=== PATIENT | female | born 1930 | race African-American/Black ===

== ENCOUNTER → 2016-11-17 | Outpatient (CLI) | payer MEDICARE ==
[~2016-11-17] MED LIST: ACET-3161; AMLO5TAB4; DIAZ-56; GUAN1TAB; RANI150C12; SERT-112; SIMV20TA2
== END | disposition home or self-care (01) ==
LOC: MAMMO 10:10
PROVIDERS: ATTEND Internal Medicine
DX: Z12.31 Encounter for screening mammogram for malignant neoplasm of breast (principal)
CPT/HCPCS: G0202

== ENCOUNTER → 2016-12-06 | Outpatient (CLI) | payer MEDICARE ==
[~2016-12-06] MED LIST changes: +BARIUM SULFATE 450ML ORAL SUSP ONE; +IOHEXOL-300 100 ML BOTTLE ONE; +SODIUM CHLORIDE 0.9% 10ML VIAL ONE
== END | disposition home or self-care (01) ==
LOC: CT 10:04
PROVIDERS: ATTEND Internal Medicine Gastroenterology
DX: K57.32 Diverticulitis of large intestine without perforation or abscess without bleeding (principal); K80.80 Other cholelithiasis without obstruction; N28.1 Cyst of kidney, acquired
CPT/HCPCS: 74177; A4216; C1893; Q9967

== ENCOUNTER → 2018-03-12 | Emergency (ER) | payer MEDICARE ==
[~2018-03-12] VITALS: Ht 162.6 cm; Wt 70.0 kg
[~2018-03-12] MED LIST changes: -ACET-3161; +ACETAMINOPHEN 325MG TABLET PO ONE; -AMLO5TAB4; -BARIUM SULFATE 450ML ORAL SUSP ONE; -DIAZ-56; -GUAN1TAB; +HYDROCODONE/ACETAMINOPHEN 10/325MG TABLET PO ONE; -IOHEXOL-300 100 ML BOTTLE ONE; +LEVOFLOXACIN 250MG TABLET PO ONE; +METRONIDAZOLE 500MG TABLET PO ONE; +MORPHINE SULFATE 10 MG/ML CPJ IM ONE; -RANI150C12; -SERT-112; -SIMV20TA2; -SODIUM CHLORIDE 0.9% 10ML VIAL ONE
[2018-03-12 22:31] VITALS: BP 179/70
== END | disposition home or self-care (01) ==
LOC: ER 19:58
DX: M54.32 Sciatica, left side (principal); M25.552 Pain in left hip; K57.92 Diverticulitis of intestine, part unspecified, without perforation or abscess without bleeding; I10 Essential (primary) hypertension; K64.9 Unspecified hemorrhoids; Z88.1 Allergy status to other antibiotic agents; Z88.2 Allergy status to sulfonamides; Z88.6 Allergy status to analgesic agent; Z90.710 Acquired absence of both cervix and uterus
CPT/HCPCS: 72192; 96372; 99284; J2270

== ENCOUNTER 2019-08-28 06:07 | Day surgery (SDC) | payer MEDICARE ==
[~2019-08-28] VITALS: Ht 162.6 cm; Wt 68.9 kg
[2019-08-28] MEDS ORDERED: TROPICAMIDE 1% OPHTH DROPS 15ML LEFTEYE ONE (06:50)
[2019-08-28] MEDS ORDERED: PHENYLEPHRINE HCL 10% OPHTH DROPS 5ML LEFTEYE ONE (06:50)
[2019-08-28] MEDS ORDERED: CYCLOPENTOLATE HCL 1% OPHTH DROPS 2ML LEFTEYE ONE (06:50)
[2019-08-28] MEDS ORDERED: LACTATED RINGERS 1,000 ML IV SCH (07:15)
[2019-08-28] MEDS ORDERED: LACTATED RINGERS 500 ML IV SCH (07:15)
[2019-08-28] MEDS ORDERED: DIAZ5TAB PO (07:41)
[2019-08-28] MEDS ORDERED: VERA240C3 PO (07:41)
[2019-08-28] MEDS ORDERED: SERT-112 PO (07:41)
[2019-08-28] MEDS ORDERED: CALC-25 PO (07:41)
[2019-08-28] MEDS ORDERED: SIMV20TA6 PO (07:41)
[2019-08-28] MEDS ORDERED: HYALURONATE SODIUM 14 MG/ML 0.85ML SYRINGE IO ONE (07:53)
[2019-08-28] MEDS ORDERED: ERYTHROMYCIN BASE 0.5% OPHTH OINT UD ONE (07:54)
[2019-08-28] MEDS ORDERED: BALANCED SALT IRRIG SOLN COMB1 500ML OP SCH (08:30)
[2019-08-28] MEDS ORDERED: MIDAZOLAM HCL 2 MG/2 ML VIAL ONE (08:45)
[2019-08-28] MEDS ORDERED: FENTANYL CITRATE/PF 50MCG/ML 2ML VIAL ONE (08:45)
[2019-08-28] MEDS ORDERED: ACETAMINOPHEN 325MG TABLET PO NR (11:01)
== END 2019-08-28 11:25 | disposition home or self-care (01) ==
LOC: OR 06:07
PROVIDERS: ATTEND Ophthalmology
DX: H25.89 Other age-related cataract (principal); I10 Essential (primary) hypertension; M19.90 Unspecified osteoarthritis, unspecified site; G62.9 Polyneuropathy, unspecified; E78.00 Pure hypercholesterolemia, unspecified; F41.9 Anxiety disorder, unspecified; Z79.899 Other long term (current) drug therapy; Z88.2 Allergy status to sulfonamides; Z88.8 Allergy status to other drugs, medicaments and biological substances; Z98.890 Other specified postprocedural states
CPT/HCPCS: 66984; J2250; J3010; J3490; V2632

== ENCOUNTER → 2020-05-16 | Outpatient (CLI) | payer MEDICARE ==
[~2020-05-16] MED LIST changes: -ACETAMINOPHEN 325MG TABLET PO ONE; +CALC-25 PO; +DIAZ5TAB PO; -HYDROCODONE/ACETAMINOPHEN 10/325MG TABLET PO ONE; -LEVOFLOXACIN 250MG TABLET PO ONE; -METRONIDAZOLE 500MG TABLET PO ONE; -MORPHINE SULFATE 10 MG/ML CPJ IM ONE; +SERT-112 PO; +SIMV-43 PO; +VERA240C3 PO
== END | disposition home or self-care (01) ==
LOC: LAB 09:57
PROVIDERS: ATTEND Ophthalmology
DX: Z01.812 Encounter for preprocedural laboratory examination (principal); Z20.828 Contact with and (suspected) exposure to other viral communicable diseases
CPT/HCPCS: C9803; U0003

== ENCOUNTER 2020-05-20 06:19 | Day surgery (SDC) | payer MEDICARE ==
[~2020-05-20] VITALS: Ht 162.6 cm; Wt 70.8 kg
[~2020-05-20 06:19] MED LIST changes: -CALC-25 PO
[2020-05-20] MEDS ORDERED: TETRACAINE 0.5% OPHTH DROPS 4ML ONE (06:30)
[2020-05-20] MEDS ORDERED: PHENYLEPHRINE HCL 2.5% OPHTH DROPS 2ML ONE (06:30)
[2020-05-20] MEDS ORDERED: CYCLOPENTOLATE HCL 1% OPHTH DROPS 2ML RIGHTEYE NR (06:30)
[2020-05-20] MEDS ORDERED: NEO/POLYMYX B SULF/DEXAMETH OPHTH OINT 3.5GM ONE (06:30)
[2020-05-20] MEDS ORDERED: CYCLOPENTOLATE HCL 1% OPHTH DROPS 2ML ONE (06:30)
[2020-05-20] MEDS ORDERED: TROPICAMIDE 1% OPHTH DROPS 15ML RIGHTEYE NR (06:30)
[2020-05-20] MEDS ORDERED: CIPROFLOXACIN 0.3% OPHTH SOLN 2.5ML ONE (06:30)
[2020-05-20] MEDS ORDERED: PREDNISOLONE ACETATE 1% OPHTH DROPS 5ML ONE (06:30)
[2020-05-20] MEDS ORDERED: TROPICAMIDE 1% OPHTH DROPS 15ML ONE (06:30)
[2020-05-20] MEDS ORDERED: PHENYLEPHRINE HCL 10% OPHTH DROPS 5ML RIGHTEYE NR (06:30)
[2020-05-20] MEDS ORDERED: LIDOCAINE HCL 2%/EPINEPHRINE 1:100,000 20 ML VIAL INFIL ONE (06:30)
[2020-05-20] MEDS ORDERED: BALANCED SALT IRRIG SOLN 15ML ONE (06:30)
[2020-05-20] MEDS ORDERED: PHENYLEPHRINE HCL 10% OPHTH DROPS 5ML ONE (06:30)
[2020-05-20] MEDS ORDERED: BALANCED SALT IRRIG SOLN COMB1 500ML OP ONE (08:30)
[2020-05-20] MEDS ORDERED: LACTATED RINGERS 1,000 ML IV SCH (08:30)
[2020-05-20] MEDS ORDERED: HYALURONATE SODIUM 10 MG/ML 0.55ML SYRINGE IO ONE (09:16)
[2020-05-20] MEDS ORDERED: FENTANYL CITRATE/PF 50MCG/ML 2ML VIAL IV PRN (11:00)
[2020-05-20 11:14] VITALS: BP 158/77
[2020-05-20] MEDS ORDERED: ACETAMINOPHEN 500MG TABLET PO NR (11:30)
== END 2020-05-20 12:30 | disposition home or self-care (01) ==
LOC: OR 06:19
PROVIDERS: ATTEND Ophthalmology
DX: H25.11 Age-related nuclear cataract, right eye (principal); I10 Essential (primary) hypertension; M19.90 Unspecified osteoarthritis, unspecified site; F32.9 Major depressive disorder, single episode, unspecified; E78.5 Hyperlipidemia, unspecified; Z79.899 Other long term (current) drug therapy; Z90.710 Acquired absence of both cervix and uterus; Z98.890 Other specified postprocedural states; Z98.1 Arthrodesis status; Z88.1 Allergy status to other antibiotic agents; Z88.8 Allergy status to other drugs, medicaments and biological substances
CPT/HCPCS: 66984; J3010; J3490; V2632